=== PATIENT | female | born 1955 | race Two or more races ===

== ENCOUNTER 2025-06-12 20:50 | Emergency (ER) | payer BC, OTHER ==
[~2025-06-12] VITALS: Ht 175.3 cm; Wt 111.0 kg
[2025-06-12 21:58] LABS: Hematocrit 42.3 % (36.0-46.0); Hemoglobin 14.3 g/dL (12.2-16.2); Mean Corpuscular Hemoglobin 28.7 pg (28.0-32.0); Mean Corpuscular Volume 84.6 fL (80.0-100.0); Nucleated Red Blood Cells % 0.1 %
[2025-06-12 22:02] LABS: Chloride 99 mmol/L (98-107); Potassium 3.5 mmol/L (3.5-5.1)
[2025-06-12 22:03] LABS: Anion Gap 12 (5-15); Carbon Dioxide 23 mmol/L (20-31)
[2025-06-12 22:08] LABS: BUN/Creatinine Ratio 14.1 (10.0-20.0); Blood Urea Nitrogen 10 mg/dL (9-23)
[2025-06-12 22:10] LABS: Calcium 8.6 mg/dL (8.7-10.4); Glucose 147 mg/dL (74-106); Sodium 134 mmol/L (136-145)
[2025-06-12 22:32] LABS: Lipase 25 U/L (12-53)
[2025-06-12] MEDS: SODIUM CHLORIDE 0.9% 1,000 ML IV ONE (22:33)
[2025-06-12] MEDS: METOCLOPRAMIDE HCL 5MG/ml INJ 2ml VIAL IV ONE (22:35)
[2025-06-12] MEDS: KETOROLAC TROMETH 30 MG/ML 1ML VIAL IV ONE (22:35)
--- NOTE | 2025-06-12 23:38 | ED.PDOC ---
History of Present Illness HPI Comments 70-year-old female who presents with her daughter reporting abdominal pain ongoing since this morning. She denies any similar symptoms in the past. Pain is currently 9/10 in severity. Associated with increased thirst, sneezing, nausea, vomiting, diarrhea, dysuria for the past 2 weeks. Patient denies associ ated fever, chills, chest pain, shortness of breath, dizziness. Pain is in the periumbilical area. Patient has taken Zofran at home with some relief of her symptoms. Past medical history includes diabetes, hypertension, hysterectomy. No recent change in medication. No recent change in diet. No consumption of spoiled food. Patient has history of UTI in the past. REVIEW OF SYSTEMS: General: No fever, no chills, or fatigue HEENT: No sore throat, no earache, no congestion, no neck pain. Cardiac: No chest pain. No palpitations. Lungs: No shortness of breath, no cough. GI: Positive nausea, positive vomiting, positive diarrhea, no constipation, positive abdominal pain : Positive dysuria, frequency, or urgency. No hematuria. Musculoskeletal: No joint pain , no joint swelling, no extremity edema. Skin: No rash, no itching. Neuro: No headache, no dizziness, no weakness (And as sated in HPI) PHYSICAL EXAM: General: Awake, alert and oriented. No acute distress. Skin: Skin in warm, dry and intact. Appropriate color for ethnicity. HEENT: The head is normocephalic and atraumatic. Conjunctivae are clear without exudates or hemorrhage. Sclera is non-icteric. Eyelids are normal in appearance without swelling or lesions. Oral mucosa is pink and moist Neck: The neck is supple with normal range of motion. No JVD. Cardiac: Heart rate and rhythm are normal. No murmurs, gallops, or rubs are auscultated. Respiratory: No signs of respiratory distress. Lung sounds are clear in all lobes bilaterally without rales, rhonchi, or wheezes. Abdominal: Abdomen is soft, positive periumbilical tenderness without distention, guarding or rigidity. Bowel sounds are present and normoactive in all four quadrants. No CVA tenderness Neurological: The patient is awake, alert and oriented to person, place, and time with normal speech. Speech is clear. There is no facial asymmetry. Normal gait Psychiatric: Appropriate mood and affect. Good judgement and insight. Chief Complaint: Abdominal Pain Time Seen by MD: 21:11 Allergies: Coded Allergies: NO KNOWN ALLERGIES (Unverified , 06/12/25) Home Meds Active Scripts Ketorolac Tromethamine (Ketorolac Tromethamine) 10 Mg Tab, 1 TAB PO TID for 3 Days, #9 TAB Take with food Prov:LILIBETH WISDOM MD 06/13/25 Metoclopramide Hcl (Reglan) 5 Mg Tab, 5 MG PO BIDPRN PRN for 3 Days, #6 TAB Prov:LILIBETH WISDOM MD 06/13/25 Acetaminophen (Acetaminophen Er) 650 Mg Tab, 650 MG PO TIDPRN PRN, #15 TAB Prov:LILIBETH WISDOM MD 06/13/25 Mode of Arrival: Ambulatory Was a procedure done? Was a procedure done?: No Differential Dx Considerations may include: DIFFERENTIAL DIAGNOSES CONSIDERED INCLUDE: ABDOMINAL AORTIC ANEURYSM, ND, ESOPHAGEAL RUPTURE, INTESTINAL OBSTRUCTION, MESENTERIC ISCHEMIA, PERFORATED VISCUS OR SOLID ORGAN RUPTURE, CHF WITH HEPATOMEGALY, PNEUMONIA, ABSCESS, APPENDICITIS, BILIARY DISEASE, DIVERTICULITIS, GASTRITIS, GASTROENTERITIS, HEPATITIS, HERNIA, INFLAMMATORY BOWEL DISEASE, PANCREATITIS, PEPTIC ULCER DISEASE, URINARY TRACT INFECTION, URETERAL COLIC, CONSTIPATION, GERD, IRRITABLE SYNDROME, ABDOMINAL WALL PAIN, NONSPECIFIC ABDOMINAL PAIN, HERPES ZOSTER, NEPHROLITHIASIS. X-Ray, Labs, Meds, VS Vital Signs Date Time Temp Pulse Resp B/P (MAP) Pulse Ox O2 Delivery O2 Flow Rate FiO2 06/13/25 03:10 98.2 64 18 143/79 (100) 99 98.2 06/12/25 22:44 98.4 71 18 149/74 (99) 97 98.4 06/12/25 20:50 98.4 99 16 147/80 97 98.4 Lab Test 06/13/25 00:00 06/12/25 22:15 06/12/25 21:35 Range/Units Urine Color Yellow Yellow Urine Clarity Clear Clear Urine pH 5.5 5.0-9.0 Urine Specific Melvin 1.033 1.001-1.035 Urine Protein Trace H Negative Urine Ketones 2+ H Negative Urine Blood Negative Negative /uL Urine Nitrite Negative Negative Urine Bilirubin Negative Negative Urine Urobilinogen Normal Negative mg/dL Urine Leukocyte Esterase Negative Negative /uL Urine RBC 2 0 - 4 /hpf Urine Microscopic WBC 2 0-5 /HPF Urine Squamous Epithelial Cells Few <5 /hpf Urine Bacteria None seen None Seen /hpf Urine Mucus Few None Seen Urine Glucose 4+ H Normal mg/dL Lactic Acid Level 0.9 0.4-2.0 mmol/L White Blood Count 7.9 4.4-10.8 10^3/uL Red Blood Count 5.00 4.0-5.20 10^6/uL Hemoglobin 14.3 12.2-16.2 g/dL Hematocrit 42.3 36.0-46.0 % Mean Corpuscular Volume 84.6 80.0-100.0 fL Mean Corpuscular Hemoglobin 28.7 28.0-32.0 pg Mean Corpuscular Hemoglobin Concent 33.9 32.0-36.0 g/dL Red Cell Distribution Width 14.0 11.8-14.3 % Platelet Count 279 140-450 10^3/uL Mean Platelet Volume 7.0 6.9-10.8 fL Neutrophils (%) (Auto) 88.8 H 37.0-80.0 % Lymphocytes (%) (Auto) 6.4 L 10.0-50.0 % Monocytes (%) (Auto) 4.5 0.0-12.0 % Eosinophils (%) (Auto) 0.0 0.0-7.0 % Basophils (%) (Auto) 0.3 0.0-2.0 % Neutrophils # (Auto) 7.1 1.6-8.6 10 ^3/uL Lymphocytes # (Auto) 0.5 0.4-5.4 10 ^3/uL Monocytes # (Auto) 0.4 0-1.3 10 ^3/uL Eosinophils # (Auto) 0 0-0.8 10 ^3/uL Basophils # (Auto) 0 0-0.2 10 ^3/uL Nucleated Red Blood Cells 0.1 % Sodium Level 134 L 136-145 mmol/L Potassium Level 3.5 3.5-5.1 mmol/L Chloride Level 99 98-107 mmol/L Carbon Dioxide Level 23 20-31 mmol/L Anion Gap 12 5-15 Blood Urea Nitrogen 10 9-23 mg/dL Creatinine 0.71 0.550-1.02 mg/dL Glomerular Filtration Rate Calc 93 >90 mL/min BUN/Creatinine Ratio 14.1 10.0-20.0 Serum Glucose 147 H 74-106 mg/dL Calcium Level 8.6 L 8.7-10.4 mg/dL Lipase 25 12-53 U/L Current Medications Medications (Trade) Dose Ordered Sig/Rashad Route Start Time Stop Time Status Last Admin Sodium Chloride 1,000 ml @ 1,000 mls/hr Q1H ONCE IV 06/12/25 22:15 06/12/25 23:14 DC 06/12/25 22:33 Ketorolac Tromethamine (Toradol Injection) 15 mg ONCE ONCE IV 06/12/25 22:15 06/12/25 22:16 DC 06/12/25 22:35 Metoclopramide HCl (Reglan Injection) 5 mg ONCE ONCE IV 06/12/25 22:15 06/12/25 22:16 DC 06/12/25 22:35 PATIENT: SHIV CARBALLOACCT: [id number]: [id number] : 1955 LOC: ER ROOM / BED: / AGE / SEX: 70 / F ADM STATUS: REG ER SERVICE 0100 ORDERING PHYSICIAN: LILIBETH WISDOM MD PROCEDURE(s): ABPLIV - CT AB PEL WITH IV CON ONLY REASON: Abdominal pain, nausea, vomiting ORDER NUMBER(s): [id number], ACCESSION NUMBER(s): [id number] Exam: CT CT AB PEL WITH IV CON ONLY History: Abdominal pain, nausea, vomiting Comparison Study: None TECHNIQUE: A 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 During the uneventful, intravenous administration of contrast material, multislice data acquisition was obtained through the abdomen and pelvis. The data set was subsequently reconstructed into multiplanar reformats. RADIATION DOSE: CTDI vol 27.58 mGy. DLP 1557.81 mGy.cm Findings: Lungs: Basilar atelectasis/scarring. Liver: Unremarkable. Spleen: Unremarkable. Pancreas: Unremarkable. Gallbladder: Unremarkable. Adrenals: Unremarkable Kidneys: Unremarkable. Pelvic Viscera: Unremarkable. Vasculature: Atherosclerotic aortoiliac calcification.. Retroperitoneum: Mild pelvic ascites. Bowel: Fluid-filled and mildly dilated small bowel without definite transition point seen. No CT evidence of appendicitis. Musculoskeletal: Unremarkable. Soft tissues: Unremarkable Impression: 1. Fluid-filled and mildly dilated small bowel without definite transition point seen. Findings may reflect a partial small bowel obstruction or enteritis in the appropriate clinical setting. ATED BY: RADHA EMERY MD DICTATED DATE/TIME: 06/13/25152 SIGNED BY: RADHA EMERY MD SIGNED DATE/TIME: 06/13/25152 CC: Time of 1ST Reevaluation: 23:35 Reevaluation 1ST: Unchanged Patient Education/Counseling: Need For Follow Up Family Education/Counseling: No Family Present SEPSIS Sepsis Screen Date sepsis recognized/suspect: Jun 12, 2025 Time Sepsis recognized/suspect: 2049 Recent Procedure: No On Antibiotic Therapy: No Respiratory Rate >20: No Heart Rate >90: No Temp<36 C (96.8 F) or >38.3 C: No SBP <90 or MAP <65 mmHG: No New Acute Mental Status Change: No Is the patient on CPAP, BIPAP,: No Physician Orders Ct Ab Pel With Iv Con Only (06/13/25 01:00) Vital Signs Date Time Temp Pulse Resp B/P (MAP) Pulse Ox O2 Delivery O2 Flow Rate FiO2 06/13/25 03:10 98.2 64 18 143/79 (100) 99 98.2 06/12/25 22:44 98.4 71 18 149/74 (99) 97 98.4 06/12/25 20:50 98.4 99 16 147/80 97 98.4 Laboratory Tests Test 06/12/25 21:35 06/12/25 22:15 White Blood Count 7.9 10^3/uL (4.4-10.8) Lactic Acid Level 0.9 mmol/L (0.4-2.0) Medications Medications Dose Ordered Sig/Rashad Route Start Time Stop Time Status Last Admin Dose Admin Ketorolac Tromethamine 15 mg ONCE ONCE IV 06/12/25 22:15 06/12/25 22:16 DC 06/12/25 22:35 Metoclopramide HCl 5 mg ONCE ONCE IV 06/12/25 22:15 06/12/25 22:16 DC 06/12/25 22:35 Sodium Chloride 1,000 ml @ 1,000 mls/hr Q1H ONCE IV 06/12/25 22:15 06/12/25 23:14 DC 06/12/25 22:33 Departure 1 Departure Time of Disposition: 03:00 Impression: Primary Impression: Abdominal pain Additional Impression: Nausea and vomiting Disposition: HOME / SELF CARE / HOMELESS Condition: Stable Additional Instructions: INSTRUCCIONES DE PARMINDER DE Urgencias Instrucciones: Maida atentamente todas las instrucciones proporcionadas en tad paquete. Aunque le hayan dado el parminder del Departamento de Emergencias, esto no significa que tenga un "certificado de buena nithin". Hoy no se brewer realizado ningn diagnstico definitivo para see sntomas. Es posible que ests en proceso de desarrollar chio enfermedad grave. Es por eso que debe regresar al servicio de urgencias sin falta si presenta algn sntoma nuevo o que empeora (especialmente si see sntomas incluyen dolor en el pecho, dificultad para respirar, dolor abdominal, fiebre, dolor de ajay, confusin, dificultad para jerri o caminar). Tambin es muy importante que consulte a un mdico de atencin primaria dentro de los prximos 3 a 5 farr para realizar un seguimiento. Si no puede conseguir chio fiona, regrese al servicio de urgencias para chio nueva evaluacin. Dolor abdominal: instrucciones de cuidado Imagen de los cuatro cuadrantes del abdomen. Descripcin general El dolor abdominal tiene muchas causas posibles. Algunas no son graves y mejoran por s solas en unos farr. Otras requieren ms pruebas y tratamiento. Si el dolor contina o empeora, es necesario volver a examinarlo y es posible que necesite ms pruebas para averiguar qu es lo que est mal. Es posible que necesite chio ciruga para corregir el problema. No ignore los sntomas nuevos, nneka fiebre, nuseas y vmitos, problemas para orinar, dolor que empeora y mareos. Estos pueden ser signos de un problema ms grave. Si no mejora, es posible que necesite ms pruebas o tratamiento. El mdico lo brewer examinado cuidadosamente, marilyn pueden surgir problemas ms adelante. Si nota algn problema o sntomas nuevos, busque tratamiento mdico de inmediato . El seguimiento mdico es chio parte fundamental de alvarez tratamiento y alvarez seguridad. Asegrese de programar y acudir a todas las citas, y llame a alvarez mdico si tiene problemas. Tambin es chio buena idea saber los resultados de see pruebas y llevar chio lista de los medicamentos que tato. Data Communications Engineer puedes cuidarte en casa? Descansa hasta que te sientas mejor. Para prevenir la deshidratacin, jos abundante lquido. Elija agua y otros lquidos ross hasta que se sienta mejor. Si tiene chio enfermedad renal, cardaca o heptica y debe limitar los lquidos, consulte con alvarez mdico antes de aumentar la cantidad de lquidos que althea. Cuando sientas ganas de comer, empieza con pequeas cantidades. No tomes alcohol, cafena ni alimentos picantes, calientes o con alto contenido de grasa lee sandie o dos farr. Evite los medicamentos antiinflamatorios nneka la aspirina, el ibuprofeno (Advil, Motrin) y el naproxeno (Aleve). Pueden causar malestar estomacal. Hable con alvarez mdico si tato aspirina a diario por otro problema de nithin. Cundo debes pedir ayuda? Llame al 911 en cualquier momento en que crea que puede necesitar atencin de emergencia. Por ejemplo, llame si: Te desmayaste (perdiste el conocimiento). Tiene heces de color marrn o con puneet colby. Vomitas colby o lo que parecen posos de caf. Tienes un dolor intenso en el vientre. Llame a alvarez mdico ahora o busque atencin mdica inmediata si: El dolor empeora, especialmente si se concentra en chio maryse determinada del abdomen. Tiene fiebre nueva o ms parminder. Las heces son negras y parecen alquitrn, o tienen vetas de colby. Tienes sangrado vaginal inesperado. Tiene sntomas de chio infeccin del tracto urinario. Estos pueden incluir: Dolor al orinar. Orinar con ms frecuencia de lo habitual. Colby en la orina. Se siente mareado o aturdido, o siente que se puede desmayar. Preste atencin a los cambios en alvarez nithin y asegrese de comunicarse con alvarez mdico si: No ests mejorando nneka esperabas. 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 During the uneventful, intravenous administration of contrast material, multislice data acquisition was obtained through the abdomen and pelvis. The data set was subsequently reconstr ucted into multiplanar reformats. RADIATION DOSE: CTDI vol 27.58 mGy. DLP 1557.81 mGy.cm Findings: Lungs: Basilar atelectasis/scarring. Liver: Unremarkable. Spleen: Unremarkable. Pancreas: Unremarkable. Gallbladder: Unremarkable. Adrenals: Unremarkable Kidneys: Unremarkable. Pelvic Viscera: Unremarkable. Vasculature: Atherosclerotic aortoiliac calcification.. Retroperitoneum: Mild pelvic ascites. Bowel: Fluid-filled and mildly dilated small bowel without definite transition point seen. No CT evidence of appendicitis. Musculoskeletal: Unremarkable. Soft tissues: Unremarkable Impression: 1. Fluid-filled and mildly dilated small bowel without definite transition point seen. Findings may reflect a partial small bowel obstruction or enteritis in the appropriate clinical setting. ATED BY: RADHA EMERY MD DICTATED DATE/TIME: 06/13/25152 SIGNED BY: RADHA EMERY MD SIGNED DATE/TIME: 06/13/25152 CC: e-Prescriptions Ketorolac Tromethamine (Ketorolac Tromethamine) 10 Mg Tab 1 TAB PO TID for 3 Days, #9 TAB Take with food Prov: LILIBETH WISDOM MD 06/13/25 Metoclopramide Hcl (Reglan) 5 Mg Tab 5 MG PO BIDPRN PRN for 3 Days, #6 TAB Prov: LILIBETH WISDOM MD 06/13/25 Acetaminophen (Acetaminophen Er) 650 Mg Tab 650 MG PO TIDPRN PRN, #15 TAB Prov: LILIBETH WISDOM MD 06/13/25 Comments MDM: 70-year-old female presented with abdominal pain. No peritoneal signs on abdominal exam. No evidence of acute abdomen at this time. patient is well appearing. Labs show no leukocytosis Imaging shows possible small bowel obstruction versus enteritis. Patient has been having normal bowel movements. At the time of discharge patient is afebrile and is not hypotensive. Low suspicion for acute hepatobiliary disease (including acute cholecystitis, acute pancreatitis, PUD (including perforation), acute infectious process (pneumonia, hepatitis, pyelonephritis), acute appendicitis, vascular catastrophe, bowel obstructions, viscous perforation. Presentation not consistent with other acute, emergent causes of abdominal pain at this time. Patient was offered admission for further treatment, observation and evaluation. Discussed risks, benefits and return precautions with the patient. The patient is declined admission and is requesting to be discharged home to follow up with the primary care provider as an outpatient. Patient felt stable for discharge home to follow up with the primary care provider promptly. Patient advised to return to the emergency department with any new, worsening or concerning symptoms. I reviewed the following notes from the pt's past medical encounters: N/A The following tests were ordered, and results were reviewed by me: (See diagnostic results section) The following test were independently interpreted by me: N/A Additional information was gathered from interviewing the following independent historians: Patient's daughter at bedside I reviewed and agreed with the following test results read by other providers: N/A I discussed treatments and results with patient and daughter Decision regarding hospitalization or escalation of hospital level of care: Risks and benefits of admission for further treatment of patient's condition was considered however due to patient's stable condition patient will be discharged to follow up closely or return to care for worsening of condition or inability to follow up. Critical Care Note Critical Care Time?: No Stability Stability form required: No Heart Score Heart Score: Heart Score Response (Comments) Value History N/A 0 EKG N/A 0 Age N/A 0 Risk Factors N/A 0 Troponin N/A 0 Total 0 LILIBETH WISDOM MD Jun 12, 2025 23:38
[2025-06-13 00:53] LABS: Urine Protein, UAD TRACE (Negative)
[2025-06-13] MEDS: IOHEXOL 300 MG/ML 100ML BOTTLE IJ ONE (01:35)
--- NOTE | 2025-06-13 01:55 | DVH ---
Exam: CT CT AB PEL WITH IV CON ONLY History: Abdominal pain, nausea, vomiting Comparison Study: None TECHNIQUE: A digital urban designer image was obtained. During the uneventful, intravenous administration of contrast material, multislice data acquisition was obtained through the abdomen and pelvis. The data set was subsequently reconstructed into multiplanar reformats. RADIATION DOSE: CTDI vol 27.58 mGy. DLP 1557.81 mGy.cm Findings: Lungs: Basilar atelectasis/scarring. Liver: Unremarkable. Spleen: Unremarkable. Pancreas: Unremarkable. Gallbladder: Unremarkable. Adrenals: Unremarkable Kidneys: Unremarkable. Pelvic Viscera: Unremarkable. Vasculature: Atherosclerotic aortoiliac calcification.. Retroperitoneum: Mild pelvic ascites. Bowel: Fluid-filled and mildly dilated small bowel without definite transition point seen. No CT evidence of appendicitis. Musculoskeletal: Unremarkable. Soft tissues: Unremarkable Impression: 1. Fluid-filled and mildly dilated small bowel without definite transition point seen. Findings may reflect a partial small bowel obstruction or enteritis in the appropriate clinical setting.
[2025-06-13] MEDS ORDERED: METO5TAB67 PO (03:00)
[2025-06-13] MEDS ORDERED: ACET650T12 PO (03:00)
[2025-06-13] MEDS ORDERED: KETO10TA PO (03:03)
[2025-06-13 03:10] VITALS: BP 143/79; PULSE 64; RESP 18; TEMP 98.2; O2SAT 99
== END 2025-06-13 03:23 | disposition home or self-care (01) ==
LOC: ER 20:50 → EEVIPCON 20:50 → ER 06-13 03:23
DX: R10.9 Unspecified abdominal pain (principal)
CPT/HCPCS: 36415; 74177; 80048; 81001; 83605; 83690; 85025; 96361; 96374; 96375; 99285; J1885; J2765; J7030; Q9967